=== PATIENT | male | born 1955 | race Asian ===

== ENCOUNTER 2019-06-25 06:29 | Day surgery (SDC) | payer OTHER ==
[~2019-06-25] VITALS: Ht 170.2 cm; Wt 69.6 kg
[2019-06-25] VITALS (9 sets, daily range): BP systolic 101–132; BP diastolic 62–85; PULSE 60–65; RESP 16–23; Ht 170.2 cm; Wt 69.6 kg
[~2019-06-25 06:29] MED LIST: ATOR10TA65 PO
[2019-06-25] MEDS ORDERED: CEFAZOLIN 2 GM/50 ML (PMX) 50 ML IVPB ONE (07:30)
[2019-06-25] MEDS ORDERED: SOD CHLORIDE 0.9% 1,000 ML IV ONE (07:30)
--- NOTE | 2019-06-25 09:26 | PREAC ---
Date/Time of Note Date/Time of Note DATE: 06/25/19 TIME: 09:24 Anesthesia Eval and Record Evaluation Time Pre-Procedure Interview DATE: 06/25/19 TIME: 09:24 Age 64 Sex male NPO: 8 hrs Preoperative diagnosis right back mass Planned procedure excision right back mass Past Medical History Past Medical History: Includes Cardio: Dyslipidemia Surgery & Anesthesia Issues No known issue Meds Anticoagulation: No Beta Eloisa within 24 hr: No Reason Beta Eloisa not given: Hypoglycemia Reported Medications Atorvastatin (Atorvastatin) 10 Mg Tablet, 10 MG PO QHS 06/25/19 Current Medications Sodium Chloride 1,000 ml @ 75 mls/hr [id number] ONCE IV ; Start 06/25/19 at 07:30; Stop 06/25/19 at 20:49 Meds reviewed: Yes Allergies Coded Allergies: No Known Allergy (Unverified , 06/25/19) Allergies Reviewed: Yes Labs/Studies Labs Reviewed: Reviewed by anesthesiologist test: N/A Studies: ECG (sr) Pre-procedure Exam Last vitals Vital Signs Date Temp Pulse Resp B/P (MAP) Pulse Ox O2 O2 Flow FiO2 Time Delivery Rate 06/25/19 97.7 62 16 132/85 99 Room Air 07:56 (101) Airway: Adequate mouth opening Mallampati: Mallampati I Teeth: Normal Lung: Normal Heart: Normal ASA Physical Status ASA physical status: 2 Emergency: None Planned Anesthetic General/MAC: MAC Planned Pain Management Parenteral pain med Pre-operative Attestations Prior to commencing anesthesia and surgery, the patient was re-evaluated, there was verification of: *The patient's identity *The results of appropriate recent lab work and preoperative vital signs *The above evaluation not changing prior to induction *Anesthetic plan, risk benefits, alternative and complications discussed with patient/family; questions answered; patient/family understands, accepts and wishes to proceed. ELVIRA UGALDE MD Jun 25, 2019 09:26
[2019-06-25] MEDS ORDERED: ONDANSETRON 4 MG INJ IV PRN (09:30)
[2019-06-25] MEDS ORDERED: DIPHENHYDRAMINE 50 MG INJ IV PRN (09:30)
[2019-06-25] MEDS ORDERED: FENTAnyl 50 MCG/ML VIAL IV PRN ×3 (09:30)
[2019-06-25] MEDS ORDERED: MEPERIDINE 25 MG INJ IV PRN (09:30)
[2019-06-25] MEDS ORDERED: HYDROmorphONE 1 MG/5 ML IV SYRINGE IV PRN ×3 (09:30)
[2019-06-25] MEDS ORDERED: OXYCODONE/ACETAMINOPHEN (5/325) TAB PO PRN ×2 (09:30)
[2019-06-25] MEDS ORDERED: FENTAnyl 50 MCG/ML VIAL ONE (09:31)
[2019-06-25] MEDS ORDERED: CEFAZOLIN 1 GM INJ ONE (09:31)
[2019-06-25] MEDS ORDERED: PROPOFOL 20 ML ONE (09:31)
[2019-06-25] MEDS ORDERED: LIDOCAINE 2% (MDV) 20 ML INJ ONE (09:46)
[2019-06-25] MEDS ORDERED: BUPIVACAINE 0.5% (SDV) 30 ML INJ ONE (09:46)
--- NOTE | 2019-06-25 10:10 | OPR ---
Date/Time of Note Date/Time of Note DATE: 06/25/19 TIME: 10:07 Operative Report Procedure Date: Jun 25, 2019 Preoperative Diagnosis back mass Postoperative Diagnosis same Operation/Procedure Performed 1. excision of back mass 4 cm mass 4 cm incision 2. localized adjacent tissue transfer with the use of skin flaps 8 sq cm defect of the back 3. therapeutic injection of subcutaneous local anesthesia Surgeon see signature line Language Interpreter none Anesthesia Type: MAC Estimated Blood Loss: 0 - 10 ml's Transfusion none Specimen back mass Grafts/Implants none Complications none Pt Condition Post Procedure: stable Indications This is a 64-year-old male with a back mass. He request surgical excision. Risks alternatives benefits and personal were discussed the patient. Patient expressed understanding and consents to the operation. Procedure Description Patient is taken to the OR and prepped and draped in usual sterile fashion. Therapeutic subcutaneous local anesthesia was injected all around the area of the mass. Elliptical incision was made with a 15 blade. Dissection with cautery was carried onto the mass and the mass was circumferentially excised. Good hemostasis status. Due to tissue defect localized adjacent to his transfer with these of skin flaps were performed. Multilayer closed with interrupted 3-0 Vicryl running 4-0 Monocryl. Dermabond was applied. Chapis LEONARDO Jun 25, 2019 10:10
[2019-06-25] MEDS ORDERED: HYDROCODONE/APAP (5/325) TAB PO ONE (10:30)
--- NOTE | 2019-06-25 14:35 | PAC ---
Date/Time of Note Date/Time of Note DATE: 06/25/19 TIME: 14:35 Post-Anesthesia Notes Post-Anesthesia Note Last documented vital signs Vital Signs Date Temp Pulse Resp B/P (MAP) Pulse Ox O2 O2 Flow FiO2 Time Delivery Rate 06/25/19 98.7 14:18 06/25/19 98.7 65 18 119/68 99 11:14 (85) 06/25/19 Room Air 10:36 Activity: WNL Respiratory function: WNL Cardiovascular function: WNL Mental status: Baseline Pain reasonably controlled: Yes Hydration appropriate: Yes Nausea/Vomiting absent: No ELVIRA UAGLDE MD Jun 25, 2019 14:35
== END 2019-06-25 11:17 | disposition home or self-care (01) ==
LOC: SDS 06:29
PROVIDERS: ATTEND Surgery
DX: L72.0 Epidermal cyst (principal)
CPT/HCPCS: 14000; 88307; J0690; J3010; Z7512; Z7610